=== PATIENT | male | born 1950 | race Caucasian/White ===

== ENCOUNTER 2016-07-10 15:39 | Emergency (ER) | payer OTHER ==
[~2016-07-10] VITALS: Ht 177.8 cm; Wt 70.5 kg
[~2016-07-10 15:39] MED LIST: ASPI-628 PO; ATOR20TA65 PO; CARV6.252 PO; LISI2.5T PO; OXYC1TAB24 PO; WARF2.5T82 PO
[2016-07-10 15:44] VITALS: BP 135/89; PULSE 60; RESP 16; O2SAT 99
--- NOTE | 2016-07-10 17:38 | ED.REPORT ---
HPI-Extremity Problem Lower Date of Service July 10, 2016 ED Provider: Jason Avery MD A 65 year old male on Warfarin with a history of triple bypass, CHF, mural thrombus and hypertension is referred to the ED from Urgent Care due to concern for DVT. He noticed what appeared to be a muscle cramp on the inner side of his right calf three weeks ago and the pain has persisted since. He concerned that this may be related to a DVT. There is no pain above the knee and the pt denies shortness of breath, cough, or chest pain. The pt denies history of DVT or PE. Nursing Notes Stated Complaint: RIGHT LOWER LEG PAIN Chief Complaint: Extremity Trauma Nursing Notes Reviewed: Yes Allergies: Coded Allergies: No Known Allergies (Verified , 07/10/16) Scheduled Aspirin (Aspir 81) 81 Mg Tablet.dr 81 MG PO DAILY Atorvastatin Calcium (Atorvastatin Calcium) 20 Mg Tablet 20 MG PO DAILY Carvedilol (Carvedilol) 6.25 Mg Tablet 6.25 MG PO BID Lisinopril (Lisinopril) 2.5 Mg Tablet 2.5 MG PO BID Warfarin Sodium (Warfarin Sodium) 2.5 Mg Tablet 2.5 MG PO DAILY Scheduled PRN oxyCODONE-Acetaminophen 5-325 mg (oxyCODONE-Acetaminophen 5-325 mg) 1 Each Tablet 1-2 TAB PO Q6H PRN PRN For Pain General Time Seen by MD: 17:37 Chief Complaint Other (Right calf pain) Hx Obtained From: Patient Arrived By: Walk-in Onset Occurred: More than a week ago... Symptom Duration: Since onset Recent Healthcare: No recent hospitalization, Recent doctor visit Similar Sx Previous: No Past Medical History Past Medical History CHF ischemic cardiomyopathy hypertension mural thrombus Past Surgical History inguinal repair triple bypass defib Reports: Cholecystectomy Smoking History Never Smoker Ambulatory Status Independent Review of Systems Musculoskeletal: Reports: Extremity pain (right calf) Skin: Denies Rash Complete sys rev & neg: except as marked. Respiratory: Denies: Non-productive cough, Shortness of breath Cardiovascular: Denies: Chest pain GI: Denies: Abdominal pain Physical Exam Initial Vital Signs Vital Signs (First) Date Time Temp Pulse Resp B/P Pulse Ox O2 Delivery O2 Flow Rate FiO2 07/10/16 15:44 36.4 60 16 135/89 99 Room Air Initial VS: Reviewed Lower Extremity / Pelvis / MS: Atraumatic positive Alice's sign Ankle / Foot: Atraumatic, Full range of motion General/Constitutional: Awake, Alert Respiratory / Chest: Atraumatic, Breath sounds NL, Breath sounds = bilat, No respiratory distress Cardiovascular: Heart rate NL, Regular rhythm, Heart sounds NL Skin: Atraumatic, Color NL, No rash, Warm, Dry Neurologic: Oriented X3, Speech NL, No motor deficits, No sensory deficits Head / Eyes: Atraumatic, Normocephalic, PERRL, EOMI ENT: Atraumatic, Airway patent, Mucous membranes moist Neck: Atraumatic, Supple, Full range of motion Abdomen: Atraumatic, Soft, Non-tender Back: Atraumatic, Full range of motion Upper Extremity / MS: Atraumatic, Full range of motion Psychiatric: Affect NL, Mood NL Interpretation & Diagnostics Interpretation & Diagnostics: US DVT: 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 Lab Results Interpretation Result Diagram: 07/10/16 1730 07/10/16 1730 Test 07/10/16 17:30 White Blood Count 6.0th/mm3 (3.8-10.1) Red Blood Count 5.55mil/mm3 (4.40-5.80) Hemoglobin 18.5g/dL (13.8-17.2) Hematocrit 52.8% (41.0-50.0) Mean Corpuscular Volume 95.1fL (81-100) Mean Corpuscular Hemoglobin 33.3pg (27.0-35.0) Mean Corpuscular Hemoglobin Concent 35.0% (32.0-37.0) Red Cell Distribution Width 13.8% (12.3-15.4) Platelet Count 162bil/L (150-400) Neutrophils (%) (Auto) 60.7% (40-74) Lymphocytes (%) (Auto) 20.2% (14-46) Monocytes (%) (Auto) 12.4% (4-12) Eosinophils (%) (Auto) 2.2% (0-5) Basophils (%) (Auto) 2.7% (0-3) Prothrombin Time 23.2sec (8.1-12.5) Prothromb Time International Ratio 2.13ratio Sodium Level 136mEq/L (134-144) Potassium Level 4.5mEq/L (3.5-5.2) Chloride Level 96mEq/L (97-108) Carbon Dioxide Level 27mmol/L (18-29) Blood Urea Nitrogen 21mg/dL (8-27) Creatinine 0.98mg/dL (0.76-1.27) Estimat Glomerular Filtration Rate 82mL/min (>59) Glucose Level 97mg/dL (60-99) Calcium Level 9.4mg/dL (8.5-10.1) Magnesium Level 2.0mg/dL (1.6-2.6) Total Bilirubin 1.1mg/dL (0.0-1.2) Aspartate Amino Transf (AST/SGOT) 29U/L (0-50) Alanine Aminotransferase (ALT/SGPT) 19U/L (0-44) Alkaline Phosphatase 67U/L (25-160) Total Protein 6.2g/dL (6.4-8.4) Albumin 3.9g/dL (3.4-5.0) Hold [place] Top Tube Received (Received) Re-Eval/Medical Decision Med Decision/Clinical Course The patient requested a referral to Dr. Marc at [facility]. Source of Hx: Old records Re-Evaluation/Progress : Time of Eval: 19:01 Patient Status: Condition improved Re-Evaluation/Progress Note: Pt rechecked, who is feeling well. The diagnosis and plan for discharge are discussed. The pt understands and agrees with the plan. All questions are addressed at this time. Counseled Regarding: Diagnosis, Lab results, Need for follow-up, When/why to return to ED Discharge & Departure Impression: Primary Impression: Right leg pain Disposition: Home Discharge Condition All VS Reviewed: Yes Condition: Stable Additional Instructions: No dangerous cause for the swelling/pain in your leg. No blood clot is suspected. Follow-up with Dr. Marc as soon as you were able. Let them know that this is an ER follow-up. Follow-up right away for new or worrisome symptoms. Referrals: Dariana Henry MD (PCP) Scribe Attestation Portions of this note were transcribed by Dong Salazar. I, Dr. Avery personally performed the history, physical exam and medical decision-making; I reviewed and confirmed the accuracy of the information in the transcribed note. Signed by: Jessenia Roberts, 07/10/16 and 1912. copies to: Dariana Henry MD, Kirk H MD July 10, 2016 17:38 DONG SALAZAR July 10, 2016 17:46
[2016-07-10 17:42] LABS: BASOPHILS % (AUTO) 2.7 % (0-3); EOSINOPHILS % (AUTO) 2.2 % (0-5); MONOCYTES % (AUTO) 12.4 % (4-12); Mean Corpuscular Hemoglobin 33.3 pg (27.0-35.0); Mean Corpuscular Volume 95.1 fL (81-100); NEUTROPHILS % (AUTO) 60.7 % (40-74); Platelet Count 162 bil/L (150-400)
[2016-07-10 18:15] LABS: INR 2.13 ratio
[2016-07-10 19:21] VITALS: BP 137/73; PULSE 67; RESP 16; O2SAT 96
--- NOTE | 2016-07-10 19:43 | DRSVH ---
PROCEDURE: US VEINOUS LEG DUPLEX UNILATERAL, RIGHT INDICATIONS: right leg pain TECHNIQUE: Real-time imaging, as well as color and pulse Doppler interrogation, were performed of the lower extr emity deep veins from the inguinal ligament to the popliteal fossa. COMPARISON: None. FINDINGS: The deep veins are normally compressible, and free of intraluminal thrombus. Color and pu lse Doppler demonstrate normal phasic intraluminal flow. There is normal augmentation response to di stal compression maneuver. IMPRESSION: No deep vein thrombosis of the right lower extremity. Dictated by: Shaniqua Avalos M.D. on 07/10/2016 at 19:41 Approved by: Shaniqua Avalos M.D. on 07/10/2016 at 19:42
== END 2016-07-10 19:22 | disposition home or self-care (01) ==
LOC: SED 15:39
DX: M79.604 Pain in right leg (principal); I50.9 Heart failure, unspecified; I51.3 Intracardiac thrombosis, not elsewhere classified; I10 Essential (primary) hypertension; I25.5 Ischemic cardiomyopathy; Z95.1 Presence of aortocoronary bypass graft; Z79.01 Long term (current) use of anticoagulants; Z79.82 Long term (current) use of aspirin